=== PATIENT | female | born 1970 | race Caucasian/White ===

== ENCOUNTER 2021-07-08 13:59 | Emergency (ER) | payer MEDICAID ==
[~2021-07-08] VITALS: Ht 157.5 cm; Wt 70.3 kg
[2021-07-08 14:21] VITALS: BP 161/93
--- NOTE | 2021-07-08 14:35 | NUR ---
PT TO [facility] FOR FURTHER EVALUTION WITH DERRICK FERNANDES.
[2021-07-08] MEDS ORDERED: CEPH-588 PO (14:38)
[2021-07-08] MEDS ORDERED: IBUP-1842 PO (14:38)
--- NOTE | 2021-07-08 14:44 | NUR ---
NO NURSING INTERVENTIONS NEEDED, NO COMPLETE ASSESSMENT NEEDED.
--- NOTE | 2021-07-08 14:51 | NUR ---
Patient discharged with v/s stable. Written and verbal after care instructions given [place]. Patient alert, oriented and verbalized understanding of instructions. Ambulatory with steady gait. All questions addressed prior to discharge. ID band removed. Patient advised to follow up with PMD. Rx of KEFLEX 500MG PO QID FOR 7DDAYS, AND IBUPROFEN 400MG PO QID PRN PAIN given. Patient educated on indication of medication including possible reaction and side effects. Opportunity to ask questions provided and answered.
[2021-07-08 14:53] VITALS: BP 152/87
== END 2021-07-08 14:51 | disposition home or self-care (01) ==
LOC: MED 13:59
DX: L60.0 Ingrowing nail (principal); L08.89 Other specified local infections of the skin and subcutaneous tissue; E11.9 Type 2 diabetes mellitus without complications; Z79.2 Long term (current) use of antibiotics; Z79.1 Long term (current) use of non-steroidal anti-inflammatories (NSAID)
CPT/HCPCS: 99283